=== PATIENT | male | born 1980 | race Caucasian/White ===

== ENCOUNTER 2020-05-23 15:54 | Emergency (ER) | payer OTHER | END 2020-05-23 17:05 | LOC: EDH 15:54 | DX: R05 Cough (principal); Z20.828 Contact with and (suspected) exposure to other viral communicable diseases; F31.9 Bipolar disorder, unspecified; F90.9 Attention-deficit hyperactivity disorder, unspecified type; Z72.0 Tobacco use | CPT/HCPCS: 71045; 87426; 99284; U0003 ==

== ENCOUNTER 2020-09-23 16:07 | Inpatient (IN) | payer OTHER ==
[~2020-09-23] VITALS: Ht 188 cm; Wt 78.7 kg
[2020-09-23] MEDS ORDERED: KETOROLAC TROMETHAMINE 30MG/ML ONE (17:01)
[2020-09-23] MEDS ORDERED: ONDANSETRON HCL 4 MG/2 ML VIAL ONE (17:01)
[2020-09-23] MEDS ORDERED: ZOSYN 3.375GM+NS 50ML 50 ML IV ONE (17:01)
[2020-09-23] MEDS ORDERED: GUAIFENESIN-CODEINE 5 ML SYRUP ONE (17:02)
[2020-09-23 17:06] LABS: BASOPHILS % (AUTO) 0.6 % (0.0-5.0); EOSINOPHILS % (AUTO) 0.2 % (0.0-8.0); HEMATOCRIT 39.1 % (42-54); LYMPHOCYTES % (AUTO) 12.3 % (21.0-51.0); MEAN CORPUSCULAR HEMOGLOBIN 28.3 pg (27.0-33.0); MEAN CORPUSCULAR VOLUME 83.2 fL (79-99); MONOCYTES % (AUTO) 6.1 % (3.0-13.0); NEUTROPHILS % (AUTO) 80.1 % (40.0-77.0); PLATELET COUNT (AUTO) 340 K/uL (130-400); WHITE BLOOD COUNT (AUTO) 12.6 K/uL (4.8-10.8)
[2020-09-23 17:16] LABS: CREATININE 1.4 mg/dL (0.5-1.5)
[2020-09-23 17:21] LABS: ALBUMIN 3.5 g/dL (3.5-5.0); BILIRUBIN,TOTAL 0.2 mg/dL (0.2-1.0); CRP QUANTITATIVE 7.1 mg/L (0.00-9.0); TOTAL PROTEIN, SERUM 7.1 g/dL (6.0-8.3)
[2020-09-23] MEDS ORDERED: LACTULOSE 20 GM/30 ML UDCUP PO PRN (18:45)
[2020-09-23] MEDS: SODIUM CHLORIDE 0.9% 1000ML 1,000 ML IV SCH (18:45)
[2020-09-23] MEDS ORDERED: MORPHINE SULFATE 2 MG/ML 1ML SYG IV PRN (18:45)
[2020-09-23] MEDS ORDERED: ONDANSETRON HCL 4 MG/2 ML VIAL IV PRN (18:45)
[2020-09-23] MEDS ORDERED: ACETAMINOPHEN 325 MG TAB PO PRN ×2 (18:45)
[2020-09-23] MEDS ORDERED: FAMOTIDINE 20MG TAB 20 MG TAB ONE (19:46)
[2020-09-23] MEDS ORDERED: SODIUM CHLORIDE 0.9% 1000ML 1,000 ML IV ONE (19:46)
[2020-09-23 20:07] LABS: AMPHET/METH SCREEN,URINE NEGATIVE (NEGATIVE); BARBITURATE SCREEN, URINE NEGATIVE (NEGATIVE); BENZODIAZEPINES SCREEN,URINE NEGATIVE (NEGATIVE); CANNABINOID SCREEN,URINE POSITIVE (NEGATIVE); COCAINE SCREEN,URINE POSITIVE (NEGATIVE); OPIATE SCREEN,URINE NEGATIVE (NEGATIVE); PHENCYCLIDINE SCREEN,URINE NEGATIVE (NEGATIVE)
[2020-09-23] MEDS: ZOSYN 3.375GM+NS 50ML 50 ML IV SCH (21:00)
[2020-09-23] MEDS: FAMOTIDINE 20MG TAB 20 MG TAB PO SCH (21:00)
[2020-09-23 22:40] VITALS: BP 120/87
[2020-09-24 03:55] VITALS: BP 131/83
[2020-09-24] MEDS: ZOSYN 3.375GM+NS 50ML 50 ML IV SCH ×3 (04:20→20:43)
[2020-09-24] MEDS: SODIUM CHLORIDE 0.9% 1000ML 1,000 ML IV SCH ×2 (04:20→18:20)
[2020-09-24 04:57] LABS: BASOPHILS % (AUTO) 0.8 % (0.0-5.0); HEMATOCRIT 38.3 % (42-54); LYMPHOCYTES % (AUTO) 22.2 % (21.0-51.0); MEAN CORPUSCULAR HEMOGLOBIN 27.7 pg (27.0-33.0); MEAN CORPUSCULAR HGB CONC 32.6 g/dL (32.0-36.0); MEAN CORPUSCULAR VOLUME 84.9 fL (79-99); MONOCYTES % (AUTO) 9.2 % (3.0-13.0); NEUTROPHILS % (AUTO) 66.2 % (40.0-77.0); PLATELET COUNT (AUTO) 273 K/uL (130-400); RED BLOOD CELL COUNT(AUTO) 4.51 MIL/uL (4.50-6.20); RED CELL DISTRIBUTION WIDTH 13.2 % (11.0-15.5); WHITE BLOOD COUNT (AUTO) 11.7 K/uL (4.8-10.8)
[2020-09-24 05:22] LABS: ALCOHOL, BLOOD < 3 mg/dL (0-10); CARBON DIOXIDE 27 mmol/L (21-32); CHLORIDE 107 mmol/L (101-111); CREATININE 1.8 mg/dL (0.5-1.5); GLOMERULAR FILTR. RATE CALC 44 mL/min (>60); GLUCOSE,RANDOM 91 mg/dL (70-105); POTASSIUM 4.1 mmol/L (3.5-5.1); SODIUM SERUM 143 mmol/L (136-145); UREA NITROGEN, BLOOD 20 mg/dL (7-18)
[2020-09-24 08:00] VITALS: BP 135/100
[2020-09-24] MEDS: FAMOTIDINE 20MG TAB 20 MG TAB PO SCH ×2 (09:35→20:43)
[2020-09-24] MEDS: ENOXAPARIN SODIUM 40 MG/0.4 ML SYRINGE SQ SCH (09:36)
[2020-09-24 12:00] VITALS: BP 139/94
[2020-09-24 15:45] VITALS: BP 145/99
[2020-09-24] MEDS ORDERED: PHARMACY COMMUNICATION MISC PRN (18:00)
[2020-09-24] MEDS ORDERED: THIAMINE HCL 100 MG TABLET PO SCH (18:00)
[2020-09-24] MEDS ORDERED: FOLIC ACID 1 MG TABLET PO SCH (18:00)
[2020-09-24] MEDS ORDERED: LORAZEPAM 2 MG/ML 1 ML VIAL IVP PRN (18:00)
[2020-09-24] MEDS ORDERED: CHLORDIAZEPOXIDE HCL 25 MG CAP PO PRN (18:00)
[2020-09-24 20:25] VITALS: BP 136/98
[2020-09-24 23:57] VITALS: BP 141/89
[2020-09-25] MEDS: SODIUM CHLORIDE 0.9% 1000ML 1,000 ML IV SCH ×3 (01:22→22:31)
[2020-09-25 03:55] VITALS: BP 149/90
[2020-09-25] MEDS: ZOSYN 3.375GM+NS 50ML 50 ML IV SCH (05:10)
[2020-09-25 05:38] LABS: EOSINOPHILS % (AUTO) 1.4 % (0.0-8.0); HEMATOCRIT 39.4 % (42-54); LYMPHOCYTES % (AUTO) 32.8 % (21.0-51.0); MEAN CORPUSCULAR HEMOGLOBIN 28.1 pg (27.0-33.0); MEAN CORPUSCULAR HGB CONC 32.7 g/dL (32.0-36.0); MEAN CORPUSCULAR VOLUME 85.8 fL (79-99); MONOCYTES % (AUTO) 8.1 % (3.0-13.0); NEUTROPHILS % (AUTO) 56.1 % (40.0-77.0); PLATELET COUNT (AUTO) 274 K/uL (130-400); RED BLOOD CELL COUNT(AUTO) 4.59 MIL/uL (4.50-6.20); RED CELL DISTRIBUTION WIDTH 13.4 % (11.0-15.5); WHITE BLOOD COUNT (AUTO) 10.9 K/uL (4.8-10.8)
[2020-09-25 06:04] LABS: ALANINE AMINOTRANSFERASE 15 U/L (12-78); ALBUMIN 2.9 g/dL (3.5-5.0); ASPARTATE AMINOTRANSFERASE 19 U/L (10-37); BILIRUBIN,DIRECT 0.1 mg/dL (0.0-0.3); BILIRUBIN,TOTAL 0.5 mg/dL (0.2-1.0); CHLORIDE 108 mmol/L (101-111); CREATININE 1.7 mg/dL (0.5-1.5); GLOMERULAR FILTR. RATE CALC 47 mL/min (>60); GLUCOSE,RANDOM 94 mg/dL (70-105); SODIUM SERUM 143 mmol/L (136-145); TOTAL PROTEIN, SERUM 6.2 g/dL (6.0-8.3); UREA NITROGEN, BLOOD 18 mg/dL (7-18)
[2020-09-25 06:10] LABS: CARBON DIOXIDE 28 mmol/L (21-32)
[2020-09-25 08:45] VITALS: BP 152/98
[2020-09-25] MEDS: FAMOTIDINE 20MG TAB 20 MG TAB PO SCH ×2 (09:46→21:31)
[2020-09-25] MEDS: FOLIC ACID 1 MG TABLET PO SCH (09:46)
[2020-09-25] MEDS: MULTIVITAMIN TABLET PO SCH (09:46)
[2020-09-25] MEDS: ENOXAPARIN SODIUM 40 MG/0.4 ML SYRINGE SQ SCH (09:47)
[2020-09-25] MEDS: THIAMINE HCL 100 MG TABLET PO SCH (09:47)
[2020-09-25 11:51] VITALS: BP 148/106
[2020-09-25] MEDS: CEFUROXIME AXETIL 250 MG TABLET PO SCH ×2 (13:09→21:31)
[2020-09-25 17:08] VITALS: BP 148/105
[2020-09-25] MEDS ORDERED: AMLODIPINE BESYLATE 5 MG TAB PO SCH (18:30)
[2020-09-25 20:00] VITALS: BP 127/95
[2020-09-25] MEDS ORDERED: TEMAZEPAM 15 MG CAPSULE ONE (23:14)
[2020-09-25] MEDS ORDERED: TEMAZEPAM 7.5 MG CAPSULE PO ONE ×2 (23:16→23:30)
[2020-09-26 01:16] VITALS: BP 134/88
[2020-09-26 05:17] LABS: BASOPHILS % (AUTO) 1.1 % (0.0-5.0); EOSINOPHILS % (AUTO) 1.2 % (0.0-8.0); HEMATOCRIT 39.6 % (42-54); LYMPHOCYTES % (AUTO) 34.2 % (21.0-51.0); MEAN CORPUSCULAR HEMOGLOBIN 27.8 pg (27.0-33.0); MEAN CORPUSCULAR HGB CONC 32.6 g/dL (32.0-36.0); MEAN CORPUSCULAR VOLUME 85.3 fL (79-99); MONOCYTES % (AUTO) 8.2 % (3.0-13.0); NEUTROPHILS % (AUTO) 54.5 % (40.0-77.0); PLATELET COUNT (AUTO) 275 K/uL (130-400); RED BLOOD CELL COUNT(AUTO) 4.64 MIL/uL (4.50-6.20); RED CELL DISTRIBUTION WIDTH 13.2 % (11.0-15.5); WHITE BLOOD COUNT (AUTO) 9.2 K/uL (4.8-10.8)
[2020-09-26 05:34] LABS: CREATININE 1.2 mg/dL (0.5-1.5); MAGNESIUM 2.2 mg/dL (1.80-2.40); POTASSIUM 3.6 mmol/L (3.5-5.1)
[2020-09-26 06:14] VITALS: BP 148/94
[2020-09-26] MEDS: SODIUM CHLORIDE 0.9% 1000ML 1,000 ML IV SCH (06:38)
[2020-09-26 08:29] VITALS: BP 136/100
[2020-09-26] MEDS: THIAMINE HCL 100 MG TABLET PO SCH (09:00)
[2020-09-26] MEDS ORDERED: AMLODIPINE BESYLATE 5 MG TAB PO SCH (09:00)
[2020-09-26 11:57] VITALS: BP 135/90
[2020-09-26] MEDS ORDERED: MVIT PO (12:28)
[2020-09-26] MEDS ORDERED: CEFU500T67 PO (12:28)
[2020-09-26] MEDS ORDERED: AMLO5TAB4 PO (12:28)
[2020-09-26] MEDS: CEFUROXIME AXETIL 250 MG TABLET PO SCH (12:33)
[2020-09-26] MEDS: FAMOTIDINE 20MG TAB 20 MG TAB PO SCH (12:37)
[2020-09-26] MEDS: MULTIVITAMIN TABLET PO SCH (12:37)
[2020-09-26] MEDS: FOLIC ACID 1 MG TABLET PO SCH (12:37)
[2020-09-26] MEDS: ENOXAPARIN SODIUM 40 MG/0.4 ML SYRINGE SQ SCH (12:39)
== END 2020-09-26 12:52 | disposition left against medical advice (07) | DRG 872 ==
LOC: EDH 16:07 → EDHIP 16:08 → UNDOADMIN 18:45 → EDHIP 18:45 → 3DH 22:12
PROVIDERS: ADMIT Family Medicine; ATTEND Family Medicine
DX: A41.9 Sepsis, unspecified organism (principal); N17.9 Acute kidney failure, unspecified; L03.90 Cellulitis, unspecified; M00.9 Pyogenic arthritis, unspecified; F12.10 Cannabis abuse, uncomplicated; F17.210 Nicotine dependence, cigarettes, uncomplicated; F14.10 Cocaine abuse, uncomplicated; I10 Essential (primary) hypertension; M71.061 Abscess of bursa, right knee; Z20.828 Contact with and (suspected) exposure to other viral communicable diseases; F90.9 Attention-deficit hyperactivity disorder, unspecified type; F31.9 Bipolar disorder, unspecified; Z91.19 Patient's noncompliance with other medical treatment and regimen; Z87.442 Personal history of urinary calculi
CPT/HCPCS: 36415; 70450; 71045; 73562; 73700; 80048; 80053; 80076; 80305; 83735; 83880; 84145; 84484; 85025; 86140; 87040; 87070; 87076; 87088; 87426; 93005; 99291; G0378; J1650; J1885; J2405; J2543; J7030; U0003